=== PATIENT | male | born 1955 | race Caucasian/White ===

== ENCOUNTER 2017-10-03 18:47 | Emergency (ER) | payer MEDICAID, OTHER, SELFPAY ==
[~2017-10-03] VITALS: Ht 177.8 cm; Wt 81.0 kg
[2017-10-03] MEDS ORDERED: KETOROLAC 30 MG/1 ML IVPush ONE (19:30)
[2017-10-03] MEDS ORDERED: PLEASE ENTER HEIGHT AND WEIGHT MC SCH (19:30)
[2017-10-03] MEDS ORDERED: KETOROLAC 30 MG/1 ML ONE (19:47)
== END 2017-10-03 20:39 | disposition home or self-care (01) ==
LOC: ED 20:33
DX: M25.552 Pain in left hip (principal); F19.10 Other psychoactive substance abuse, uncomplicated; W19.XXXA Unspecified fall, initial encounter; Y93.01 Activity, walking, marching and hiking; Y92.488 Other paved roadways as the place of occurrence of the external cause; Y99.8 Other external cause status
CPT/HCPCS: 73502; 96374; 99284; J1885

== ENCOUNTER 2021-04-17 16:59 | Emergency (ER) | payer SELFPAY ==
[~2021-04-17] VITALS: Ht 182.9 cm; Wt 75.0 kg
[2021-04-17 17:03] VITALS: BP 127/87
--- NOTE | 2021-04-17 17:20 | NUR ---
PT BACK TO ROOM AT THIS TIME. PT FOUND TO BE YELLING AND CURSING AT [employer]. PT STATES "I NEED TO FIND MY FRIEND, HES IN HERE". PT HAD RISK OF LEAVING AMA EXPLAINED TO HIM, PT VERBALIZED UNDERSTANDING. PT WHEELED TO LOBBY WITH ESCORT OF SECURITY.
[2021-04-17] MEDS ORDERED: ALBUTEROL/IPRATROPIUM 2.5MG/0.5MG, 3 ML NPPB ONE (17:30)
[2021-04-17] MEDS ORDERED: SODIUM CHLORIDE FLUSH 10ML SYR IVF ONE (18:00)
== END 2021-04-17 23:00 | disposition home or self-care (01) ==
LOC: ED 22:00
DX: R55 Syncope and collapse (principal); R06.00 Dyspnea, unspecified
CPT/HCPCS: 99281

== ENCOUNTER 2021-04-26 18:07 | Emergency (ER) | payer SELFPAY ==
[~2021-04-26] VITALS: Ht 177.8 cm; Wt 75.0 kg
[2021-04-26 19:10] VITALS: BP 123/80
--- NOTE | 2021-04-26 19:10 | NUR ---
INITIAL PT CONTACT. PT BIB EMS, FOUND ON SIDEWALK DOWN [facility], PT ALTERED, ORIENTED TO SELF ONLY. PT AGITATED. ABLE TO PROVIDE MEDICAL HX AND RECALL EVENTS FROM LAST WEEK. "I HAVE PAIN, I HAVE LOTS OF PAIN IN MY NECK, THIS DAMN TUMOR. I DON'T WANT TO BE HERE AT [facility], I HATE THIS PLACE. I AM NOT LETTING YOU DO ANYTHING TO ME." PT AGGRESIVE AND HOSTILE TOWARDS STAFF, FOLLOWS SOME COMMANDS "DON'T TELL ME WHAT TO DO, FUCK YOU AND THIS PLACE." ERP AT BEDSIDE. PT PLACED ON CONTINUOUS MONITORING.
[2021-04-26] MEDS ORDERED: LORazepam 2 MG/ML, 1ML IVPush ONE (19:30)
--- NOTE | 2021-04-26 19:45 | NUR ---
PT CONTINUES TO YELL AND BE AGGRESIVE TOWARDS STAFF. PT A&OX4 AT THIS TIME. PT STATES "I AM READY TO LEAVE, I DONT WANT ANYTHING DONE HERE. I HATE THIS HOSPITAL. I WILL SIGN ANYTHING AND LEAVE THIS HOSPITAL, WHATEVER IT TAKES." ERP AWARE. PT SIGNED APPROPRIATE AMA PAPERWORK. AMBULATORY WITH PERSONAL CANE TO ED WAITING ROOM.
== END 2021-04-26 19:48 | disposition left against medical advice (07) ==
LOC: ED 19:03
DX: R56.9 Unspecified convulsions (principal)
CPT/HCPCS: 99283